=== PATIENT | female | born 1980 | race Caucasian/White ===

== ENCOUNTER 2018-05-05 13:01 | Emergency (ER) | payer SELFPAY ==
[2018-05-05] MEDS ORDERED: Morphine 4 MG/ML VIAL ONE (13:10)
[2018-05-05] MEDS ORDERED: Adacel (T-DAP) 0.5 ML VIAL ONE (13:10)
[2018-05-05] MEDS ORDERED: Ondansetron ODT 8 MG TAB ONE (13:10)
[2018-05-05] MEDS ORDERED: Ondansetron HCl/PF 4 MG/2 ML Vial ONE (13:11)
[2018-05-05 13:19] LABS: #Eosinphils 0.2 thou/uL (0.0-0.7); #Lymphocytes 1.6 thou/uL (1.20-3.40); #Monocytes 0.3 thou/uL (0.11-0.59); %Basophils 0.3 % (0.0-1.0); %Eosinophils 3.5 % (0.0-10.0); %Lymphocytes 26.1 % (21.0-51.0); %Monocytes 4.7 % (0.0-10.0); %Neutrophils 65.4 % (42.0-75.0); Hemoglobin 13.3 g/dL (12.0-16.0); Mean Corpuscular HGB CONC 33.7 g/dL (32.0-36.0); Mean Corpuscular Volume 89.1 fL (78.0-98.0); Platelet Count 159 thou/uL (130-400); RBC Distribution Width 11.8 % (11.5-14.5); Red Blood Cell (RBC) Count 4.42 mill/uL (4.20-5.40); White Blood Cell (WBC) Count 6.1 thou/uL (4.8-10.8)
[2018-05-05 13:53] LABS: ALT (SGPT) 36 U/L (8-55); AST (SGOT) 31 U/L (5-34); Alkaline Phosphatase 51 U/L (40-150); Anion Gap 11 mmol/L (10-20); BUN (Urea Nitrogen) 12 mg/dL (7.0-18.7); Bilirubin, Total 0.4 mg/dL (0.2-1.2); Calc. Creatinine Clearance 0 mL/min (70-130); Calcium 8.6 mg/dL (7.8-10.44); Carbon Dioxide 21 mmol/L (22-29); Chloride 112 mmol/L (98-107); Estimated GFR-MDRD 61; Globulin 3.4 g/dL (2.4-3.5); Glucose 96 mg/dL (70-105); Potassium 4.6 mmol/L (3.5-5.1); Protein, Total 7.4 g/dL (6.0-8.3); Sodium 139 mmol/L (136-145)
[2018-05-05] MEDS ORDERED: Lidocaine 1% (PF) 30 ML VIAL ONE ×2 (13:59→14:25)
--- NOTE | 2018-05-05 14:16 | RAD ---
LEFT ANKLE THREE VIEWS: HISTORY: Laceration to the ankle with arterial bleed. FINDINGS: There are some arthritic changes of the ankle with some spur formation. There is no joint effusion. There is a prominent calcaneal spur at the plantar fascia origin. A soft tissue laceration is seen along the lateral ankle. No radiopaque foreign body is noted. IMPRESSION: Soft tissue injury without any underlying foreign body or fracture. POS: ANNI
[2018-05-05] MEDS ORDERED: Bacitracin Zinc 1 Packet ONE ×2 (14:40)
== END 2018-05-05 15:32 | disposition home or self-care (01) ==
LOC: ERS 13:01
DX: S91.012A Laceration without foreign body, left ankle, initial encounter (principal); W45.8XXA Other foreign body or object entering through skin, initial encounter
CPT/HCPCS: 12002; 36415; 80053; 85025; 90471; 90715; 96374; 96375; G0390; J2001; J2270; J2405